=== PATIENT | female | born 1945 | race Caucasian/White ===

== ENCOUNTER → 2017-01-14 | Outpatient (CLI) | payer OTHER ==
[~2017-01-14] MED LIST: ASPIR 8181 M1 PO; FISH OIL500 MG PO; METOPROLOL SUCC50 MG PO; PREMARIN0.3 MG PO; WOMEN'S MULTI200 MCG PO
== END | disposition home or self-care (01) ==
LOC: AMB 12:28
PROC: 0HB6XZX Excision of Back Skin, External Approach, Diagnostic (ICD-10-PCS; principal; 2017-01-14)
DX: D23.5 Other benign neoplasm of skin of trunk (principal)
CPT/HCPCS: 88305